=== PATIENT | female | born 1985 | race Caucasian/White ===

== ENCOUNTER → 2022-02-23 13:47 | Outpatient (CLI) | payer MEDICAID, SELFPAY | PROVIDERS: Visit Provider Obstetrics & Gynecology | DX: Z32.00 Encounter for pregnancy test, result unknown (principal) | CPT/HCPCS: 36415; 84702 ==

== ENCOUNTER → 2022-03-21 15:49 | Outpatient (CLI) | payer MEDICAID, SELFPAY ==
[2022-03-21 16:48] LABS: Basophils # 0.3 K/mm3 (0-0.2); Basophils % 2.2 % (0.1-2.0); Eosinophils # 0.2 K/mm3 (0.0-0.4); Eosinophils % 1.6 % (0.1-12.0); Hemoglobin 13.7 g/dL (12.2-16.2); Lymphocytes # 2.8 K/mm3 (0.7-4.5); Lymphocytes % 24.3 % (10-50); Mean Corpuscular HGB Conc 33.5 g/dL (31.8-35.4); Mean Corpuscular Hemoglobin 32.2 pg (27.0-31.2); Mean Corpuscular Volume 96.1 fl (81-99); Mean Platelet Volume 7.9 fl (7.4-10.4); Monocytes # 0.4 K/mm3 (0.1-1.0); Monocytes % 3.8 % (1.7-9.3); Neutrophils # 7.8 K/mm3 (1.8-7.8); Neutrophils % 68.1 % (37.0-80.0); Platelet Count 335 K/mm3 (142-424); Red Blood Count 4.27 M/mm3 (4.20-5.40); White Blood Count 11.5 K/mm3 (4.8-10.8)
[2022-03-23 09:34] LABS: HIV Screen 4th Generation wRfx Non Reactive (Non Reactive); Hepatitis B Surface Antigen Negative (Negative); Hepatitis C Antibody <0.1 s/co ratio (0.0-0.9); Rubella Antibodies, IgG 4.88 index (Immune >0.99)
[2022-03-23 12:02] LABS: Rapid Plasma Reagin Ab Titer Non Reactive (NonRea<1:1)
== END ==
PROVIDERS: PCP Nurse Practitioner Family; Visit Provider Obstetrics & Gynecology
DX: Z34.90 Encounter for supervision of normal pregnancy, unspecified, unspecified trimester (principal)
CPT/HCPCS: 36415; 85025; 86592; 86703; 86762; 86850; 87340; 87380; G0432

== ENCOUNTER → 2022-05-22 13:10 | Outpatient (CLI) | payer MEDICAID, SELFPAY ==
--- NOTE | 2022-05-22 13:10 | US_ITS ---
FINAL REPORT CLINICAL HISTORY: 20 weeks gestation anatomy scan FINDINGS: There is a single live intrauterine gestation. Presentation is cephalic. Placenta is posterior, height, grade 1. Cardiac activity is confirmed at 146 bpm. movement is seen. Three-vessel cord with satisfactory umbilical cord insertion. Four-chamber heart is noted. AMNIOTIC FLUID: Appropriate amount. MEASUREMENTS: ULTRASOUND AGE: 19 weeks 4 days. GESTATION AGE: 20 weeks 0 days. ESTIMATED WEIGHT: 288 g GROWTH PERCENTILE: 33% BPD: 4.7 cm corresponding with 20 weeks 2 days. OFD: 5.6 cm corresponding with 19 weeks 5 days. HC: 16.3 cm corresponding with 19 weeks 1 days. AC: 14.1 cm corresponding with 19 weeks 4 days. FL: 3.0 cm corresponding with 19 weeks 2 days. CEREBELLUM: 2.1 cm corresponding with 21 weeks 2 days. HUMERUS: 2.9 cm corresponding with 19 weeks 4 days. HC/AC: 1.15 CI: 83% FL/BPD: 64% FL/AC: 21% IMPRESSION: Single living IUP with an ultrasound age of 19 weeks 4 days. No gross anomaly is identified. Reviewed, Interpreted and Dictated by Felix Potter MD Transcribed by Hien Emerson Authenticated and [facility]
== END ==
PROVIDERS: PCP Nurse Practitioner Family; Visit Provider Obstetrics & Gynecology
DX: Z34.90 Encounter for supervision of normal pregnancy, unspecified, unspecified trimester (principal); Z3A.20 20 weeks gestation of pregnancy
CPT/HCPCS: 76811

== ENCOUNTER → 2022-07-09 10:43 | Outpatient (CLI) | payer MEDICAID, SELFPAY ==
[2022-07-09 11:46] LABS: Basophils # 0.1 K/mm3 (0-0.2); Basophils % 0.6 % (0.1-2.0); Eosinophils # 0.2 K/mm3 (0.0-0.4); Eosinophils % 1.3 % (0.1-12.0); Hematocrit 37.9 % (37.0-47.0); Hemoglobin 12.5 g/dL (12.2-16.2); Lymphocytes # 2.3 K/mm3 (0.7-4.5); Lymphocytes % 19.6 % (10-50); Mean Corpuscular Hemoglobin 31.9 pg (27.0-31.2); Mean Corpuscular Volume 96.6 fl (81-99); Mean Platelet Volume 8.7 fl (7.4-10.4); Monocytes # 0.7 K/mm3 (0.1-1.0); Monocytes % 5.7 % (1.7-9.3); Neutrophils # 8.4 K/mm3 (1.8-7.8); Neutrophils % 72.8 % (37.0-80.0); Platelet Count 296 K/mm3 (142-424); Red Blood Count 3.93 M/mm3 (4.20-5.40); Red Cell Distribution Width 12.7 % (11.5-17.5); White Blood Count 11.6 K/mm3 (4.8-10.8)
[2022-07-09 12:06] LABS: Glucose,Fasting 79 mg/dl (74-100)
[2022-07-09 13:49] LABS: Glucose 1 Hour 126 mg/dL (74-100)
== END ==
PROVIDERS: PCP Emergency Medicine; Visit Provider Obstetrics & Gynecology
DX: Z34.90 Encounter for supervision of normal pregnancy, unspecified, unspecified trimester (principal)
CPT/HCPCS: 36415; 82951; 85025

== ENCOUNTER 2022-09-04 13:06 | Outpatient (CLI) | payer MEDICAID, SELFPAY ==
--- NOTE | 2022-09-04 13:08 | US_ITS ---
FINAL REPORT CLINICAL HISTORY: sga FINDINGS: There is a single live intrauterine gestation. Presentation is cephalic. Placenta is posterior, grade 2. Heart rate is 144 beats per minute. Visualized anatomy appears normal. AMNIOTIC FLUID LUISITO: 7.26 cm, borderline. MEASUREMENTS: BPD: 8.4 cm corresponding with 34 weeks 0 days. OFD: 10.4 cm corresponding with 32 weeks 5 days. HC: 29.8 cm corresponding with 33 weeks 0 days. AC: 29.3 cm corresponding with 33 weeks 2 days. FL: 6.4 cm corresponding with 33 weeks 0 days. IMPRESSION: Single living IUP with an LUISITO of 7.26 cm. Reviewed, Interpreted and Dictated by Ed Israel III, MD Transcribed by Hien Emerson Authenticated and [facility]
[2022-09-04 16:05] VITALS: BP 106/70; PULSE 78; RESP 18; TEMP 36.7; O2SAT 100; BMI 23.2
== END 2022-09-04 17:50 | disposition home or self-care (01) ==
LOC: RAD 13:06 → OBOUT 15:53 → OB 15:53
PROVIDERS: PCP Emergency Medicine; Visit Provider Obstetrics & Gynecology
DX: O36.5990 Maternal care for other known or suspected poor fetal growth, unspecified trimester, not applicable or unspecified (principal)
CPT/HCPCS: 59025; 76816; 96360

== ENCOUNTER 2022-09-05 11:35 | Outpatient (CLI) | payer MEDICAID, SELFPAY ==
[2022-09-05 12:44] VITALS: BMI 23.2
[2022-09-05 12:48] LABS: Microscopic, Urine URINE MICROSCOPIC (MICROSCOPIC)
[2022-09-05 12:51] LABS: Appearance,Urine CLEAR (Clear); Bilirubin,Urine Negative (Negative); Blood, Urine Negative (Negative); Color,Urine YELLOW (Yellow); Glucose,Urine (UA) Negative (Negative); Ketones,Urine Negative (Negative); Leukocyte Esterase,Urine Negative (Negative); Nitrate,Urine Negative (Negative); Protein,Urine Negative (Negative); Specific Gravity, Urine <= 1.005 (1.005-1.030); Urobilinogen,Urine 0.2 EU/dl (0.2)
[2022-09-05 13:02] LABS: Opiate Screen,Urine Negative ng/ml (<300)
[2022-09-05 13:03] LABS: Phencyclidine Screen,Urine Negative ng/ml (<25)
[2022-09-05 13:04] LABS: Amphetamine/Metha Screen,Urine Negative ng/ml (<1000)
[2022-09-05 13:05] LABS: Barbiturates Screen,Urine Negative ng/ml (<200); Benzodiazepines Screen,Urine Negative ng/ml (<200)
[2022-09-05 13:06] LABS: Bacteria,Urine Trace /lpf; Cannabinoid Screen,Urine Negative ng/ml (<50); WBC,Urine Occasional #/hpf (0-3)
[2022-09-05 13:07] LABS: Cocaine Screen,Urine Negative ng/ml (<300); Methadone Screen,Urine Negative ng/ml (<300)
[2022-09-05 13:17] VITALS: BMI 23.2
== END 2022-09-05 15:18 | disposition home or self-care (01) ==
LOC: OBOUT 11:37 → OB 11:38
PROVIDERS: PCP Emergency Medicine; Visit Provider Obstetrics & Gynecology
DX: O26.893 Other specified pregnancy related conditions, third trimester (principal); Z3A.35 35 weeks gestation of pregnancy; R10.9 Unspecified abdominal pain
CPT/HCPCS: 59025; 80305; 81001; 96360; 96372

== ENCOUNTER → 2022-09-13 03:00 | Outpatient (CLI) | payer MEDICAID, SELFPAY | PROVIDERS: PCP Obstetrics & Gynecology; Visit Provider Obstetrics & Gynecology | DX: Z34.90 Encounter for supervision of normal pregnancy, unspecified, unspecified trimester (principal) | CPT/HCPCS: 86403 ==

== ENCOUNTER 2022-09-19 05:09 | Inpatient (IN) | payer MEDICAID, SELFPAY ==
[2022-09-19 05:14] VITALS: BP 110/78; PULSE 68; RESP 18; TEMP 36.7; O2SAT 98; BMI 22.8
[2022-09-19 05:15] VITALS: BMI 23.6
[2022-09-19 06:08] LABS: Microscopic, Urine URINE MICROSCOPIC (MICROSCOPIC)
[2022-09-19 06:08] LABS: Coronavirus 19, PCR Not Detected (NotDetected); Influenza A, PCR Not Detected (NotDetected); Influenza B, PCR Not Detected (NotDetected)
[2022-09-19 06:16] LABS: Appearance,Urine CLEAR (Clear); Bilirubin,Urine Negative (Negative); Blood, Urine Negative (Negative); Color,Urine YELLOW (Yellow); Glucose,Urine (UA) Negative (Negative); Ketones,Urine Negative (Negative); Leukocyte Esterase,Urine 3+ (Negative); Nitrate,Urine Negative (Negative); Protein,Urine Negative (Negative); Urobilinogen,Urine 0.2 EU/dl (0.2)
[2022-09-19 06:27] LABS: Amphetamine/Metha Screen,Urine Negative ng/ml (<1000)
[2022-09-19 06:28] LABS: Barbiturates Screen,Urine Negative ng/ml (<200)
[2022-09-19 06:29] LABS: Benzodiazepines Screen,Urine Negative ng/ml (<200); Cannabinoid Screen,Urine Negative ng/ml (<50)
[2022-09-19 06:30] LABS: Cocaine Screen,Urine Negative ng/ml (<300)
[2022-09-19 06:31] LABS: Methadone Screen,Urine Negative ng/ml (<300); Opiate Screen,Urine Negative ng/ml (<300)
[2022-09-19 06:32] LABS: Phencyclidine Screen,Urine Negative ng/ml (<25)
[2022-09-19 06:34] LABS: Bacteria,Urine 1+ /lpf
[2022-09-19 06:45] LABS: Basophils # 0.1 K/mm3 (0-0.2); Basophils % 0.9 % (0.1-2.0); Eosinophils # 0.2 K/mm3 (0.0-0.4); Eosinophils % 1.7 % (0.1-12.0); Hematocrit 36.8 % (37.0-47.0); Hemoglobin 12.8 g/dL (12.2-16.2); Lymphocytes # 3.1 K/mm3 (0.7-4.5); Lymphocytes % 31.4 % (10-50); Mean Corpuscular HGB Conc 34.7 g/dL (31.8-35.4); Mean Corpuscular Volume 92.2 fl (81-99); Mean Platelet Volume 11.2 fl (7.4-10.4); Monocytes # 0.6 K/mm3 (0.1-1.0); Monocytes % 5.9 % (1.7-9.3); Neutrophils % 60.2 % (37.0-80.0); Platelet Count 237 K/mm3 (142-424); Red Blood Count 3.99 M/mm3 (4.20-5.40); Red Cell Distribution Width 12.8 % (11.5-17.5)
--- NOTE | 2022-09-19 07:00 | PC.NURSE ---
Patient tolerated shift well. Resting in bed. No s/s of distress noted at this time. Post-op incision clean and dry. IV patent with no redness or edema note to site. Call light within reach of patient, instructed to notify staff of any needs. Report given to day shift.
[2022-09-19 07:25] VITALS: BP 107/73; PULSE 63; RESP 17; TEMP 36.6; O2SAT 100
--- NOTE | 2022-09-19 08:13 | EXP.LABOR.NO ---
Labor Note Subjective: Date: 09/19/22 Time: 08:16 regular contraction Objective: NST:: Reactive Contractions:: every 2-3 minutes Cervical Dilation:: 2 Effacement:: 60% Station: -3 Fetus: Monitoring?: Yes monitoring type:: External Assessment: All Active Problems IUGR, (Acute) uterine contractions in third trimester, antepartum (Acute) Maternal care for restricted growth, antepartum (Acute) Sciatica (Acute) Varicose veins during (Acute) LGSIL on Pap smear of cervix (Acute) Advanced maternal age (AMA) in (Acute) Tobacco use (Acute) Plan: Continue to monitor?: Yes
--- NOTE | 2022-09-19 10:16 | P.PN_ITS ---
[facility] Disclaimer: The information contained in this section may have been updated after the patient was seen, as this information can be updated by other users. Medical History IUGR, Sciatica Family History Family/Other Cancer Maternal Aunt Social History Smoking Status: Current every day smoker tobacco type: cigarettes packs per day: 1 alcohol intake: never substance use type: denies use current occupational status: employed Travel in the last 8 weeks: None [facility] Anesthesia Checklist Patient Identification Patient Identification: Arm Band and Verbal (Name & ) Structural Data Admitted From: Inpatient Planned Operative Procedure/s: Labor epidural Consent for Planned Operative Procedure(s) Verified: Yes NPO Status Verified Time NPO: 00:00 Chart Verification Results Verified: CBC and BMP Airway Assessment C-Spine Mobility Assessed: Yes TMJ Mobility Assessed: Yes Dentition: Good Dentition Neurological Assessment Level of Consciousness: Awake Hx Seizures: No Numbness or tingling in extremities: No Anesthesia Plan Anesthesia Risk discussed: Yes Anesthesia Plan: Verified ASA Class: II Anesthesia Type: Epidural
--- NOTE | 2022-09-19 11:06 | EXP.LABOR.NO ---
Labor Note Subjective: Date: 09/19/22 Time: 11:06 regular contraction Objective: NST:: Reactive Contractions:: every 2-3 minutes Cervical Dilation:: 4 Effacement:: 60% Station: -2 Membranes: artificially ruptured Comment:: clear fluid noted Fetus: Monitoring?: Yes monitoring type:: Internal Assessment: Labor progressing?: Yes All Active Problems IUGR, (Acute) uterine contractions in third trimester, antepartum (Acute) Maternal care for restricted growth, antepartum (Acute) Sciatica (Acute) Varicose veins during (Acute) LGSIL on Pap smear of cervix (Acute) Advanced maternal age (AMA) in (Acute) Tobacco use (Acute) Plan: Anesthesia for epidural?: Yes Continue to monitor?: Yes
--- NOTE | 2022-09-19 15:15 | EXP.OB.APHP ---
OB - H&P: HPI Antepartum History of Present Illness Chief complaint: Scheduled induction of labor for IUGR History of present illness: Ms Lona Landry is a 36 yo at 37w1d who presented to [facility] Labor and Delivery for scheduled induction of labor secondary to IUGR. Ultrasound with PDC 09/11/22 demonstrated EFW 4%ile with AC and Femur length < 1 %ile. LUISITO 16.6, BPP 8/8. Umbilical artery S/D ratio normal. Baby is active. Denies leakage of fluid and vaginal bleeding. History of Present Criteria for establishing EDC:: LMP confirmed by 1st trimester US care: good care Ultrasounds: normal mid trimester US Obstetrical complications: growth restriction Medical complications: none Labs Blood type: A (+) positive Rubella: immune RPR/VDRL: nonreactive GBS status: negative HBsAG: negative PFSH PFSH Disclaimer: The information contained in this section may have been updated after the patient was seen, as this information can be updated by other users. Medical History (Updated 09/19/22 @ 15:24 by Yazmin Kaplan DO) IUGR, with 37 weeks completed gestation Sciatica Family History Family/Other Cancer Social History Smoking Status: Current every day smoker tobacco type: cigarettes packs per day: 1 alcohol intake: never substance use type: denies use current occupational status: employed Travel in the last 8 weeks: None Review of Systems Review of Systems Review of systems:: pertinent systems reviewed and negative unless documented below Meds Home Medications and Allergies Home Medications Medication Instructions Recorded Confirmed Type cetirizine 10 mg tablet 10 mg PO DAILY PRN Allergic 07/04/22 09/19/22 History Symptoms prenat.vits,fredy,[id number]-[id number] 1 tab PO DAILY 07/04/22 09/19/22 History New Prescriptions to Start Prescriptions: Allergies Allergy/AdvReac Type Severity Reaction Status Date / Time No Known Allergies Allergy Verified 09/13/22 14:23 OB - H&P: Exam Physical Exam Vital signs: Temp Pulse Resp BP Pulse Ox 97.8 F 63 17 107/73 L 100 09/19/22 07:25 09/19/22 07:25 09/19/22 07:25 09/19/22 07:25 09/19/22 07:25 Constitutional no acute distress Routine HEENT Exam Head: Present normocephalic and atraumatic Eye: Absent conjunctivae pink ENT: Present mucous membranes moist and dentition normal Routine Neck Exam Present full ROM Routine Respiratory Exam Present CTA bilaterally and normal respiratory effort Routine Cardiovascular Exam Present RRR Routine Abdominal Exam Present soft (Gravid); Absent tenderness Routine Exam External: Present normal urethra appearance; Absent swelling, lesions, lacerations or vulvar tenderness Routine Extremities Exam Present full ROM; Absent edema or calf tenderness Comments: + varicose veins on bilateral lower extremities, LLE > RLE Routine Neurological Exam Present alert, oriented X3 and moving all extremities Routine Psychiatric Exam Present normal affect and cooperative Detailed Labor and Delivery Exam Dilation (cm): 2 Effacement (%): 60 Cervix position: posterior station: -3 Consistency: medium Membranes: artificially ruptured (at 0729 with am[place]. Scant fluid ) Amniotic fluid: clear Baseline heart rate: 140 monitor accelerations: Present monitor decelerations: None residential variability: Moderate (11-25) Contraction frequency (min): 3 Tachysystole: No OB - Results Labs Labs: Short CBC 09/19/22 Range/Units 05:55 WBC 10.0 (4.8-10.8) K/mm3 Hgb 12.8 (12.2-16.2) g/dL Hct 36.8 L (37.0-47.0) % Plt Count 237 (142-424) K/mm3 Urine 09/19/22 Range/Units 05:30 Urine Color Yellow (Yellow) Urine Appearance Clear (Clear) Urine pH 7.0 (5.0-8.5) Ur Specific [place] 1.010 (1.005-1.03
--- NOTE | 2022-09-19 15:25 | EXP.DN ---
Delivery Note Delivery Date:: 09/19/22 Delivery Time:: 14:59 Anesthesia Type: Epidural Was labor medically induced?: Yes Induction method: per pitocin protocol Gestational age (weeks): 37 delivered prior to 39 weeks?: Yes Justification for early elective delivery:: IUGR Infant Gender: Male at 1 minute: 8 at 5 minutes: 9 Delivery Procedure:: Mom complete with epidural. Pushed for approximately 17 minutes. Head delivered spontaneously over intact perineum in direct OA position. No nuchal cord. Anterior shoulder delivered with gentle downward pressure. Posterior shoulder and remainder of body delivered spontaneously. Baby placed on maternal abdomen, mouth and nares bulb suctioned, warmed/dried and stimulated. Delayed cord clamping was performed for 60 seconds. Cord was clamped and cut by father of baby. Cord blood was obtained. Placenta delivered spontaneously and intact. Periurethral laceration repaired with 3-0 Vicryl. Hemostasis noted. Mom and baby were skin to skin and doing well after delivery. Live male baby (baby's name is Joon) APGARs 8, 9 EBL 200 mL Placental Delivery Description: Spontaneous
[2022-09-19 21:30] VITALS: BP 118/71; PULSE 71; RESP 18; TEMP 36.6; O2SAT 99
[2022-09-20 04:00] VITALS: BP 134/77; PULSE 75; RESP 18; TEMP 36.7; O2SAT 97
[2022-09-20 08:38] VITALS: BP 116/66; PULSE 74; RESP 18; TEMP 36.4; O2SAT 98
[2022-09-20 09:02] LABS: Basophils # 0.1 K/mm3 (0-0.2); Basophils % 0.5 % (0.1-2.0); Eosinophils # 0.2 K/mm3 (0.0-0.4); Eosinophils % 1.4 % (0.1-12.0); Hematocrit 34.3 % (37.0-47.0); Hemoglobin 11.6 g/dL (12.2-16.2); Lymphocytes # 2.8 K/mm3 (0.7-4.5); Lymphocytes % 16.8 % (10-50); Mean Corpuscular HGB Conc 33.9 g/dL (31.8-35.4); Mean Corpuscular Hemoglobin 31.1 pg (27.0-31.2); Mean Corpuscular Volume 91.8 fl (81-99); Mean Platelet Volume 10.4 fl (7.4-10.4); Monocytes # 0.8 K/mm3 (0.1-1.0); Monocytes % 4.4 % (1.7-9.3); Neutrophils % 76.9 % (37.0-80.0); Platelet Count 263 K/mm3 (142-424); Red Blood Count 3.73 M/mm3 (4.20-5.40); White Blood Count 16.9 K/mm3 (4.8-10.8)
[2022-09-20 09:04] LABS: MANUAL DIFFERENTIAL MANUAL DIFFERENTIAL (MANUAL DIFF)
[2022-09-20 09:20] LABS: Lymphocytes % 8 % (10-50); Monocytes % 3 % (2-9); Neutrophils % 89 % (42-76); Platelet Estimate Normal; RBC Morphology Normal; Total Cells Counted 100
--- NOTE | 2022-09-20 13:00 | EXP.DC.SUM ---
General Admission date:: 09/19/22 HPI HPI HPI: IOL 37 weeks for growth restriction Uncomplicated vaginal delivery Hospital Course Hospital Course Hospital Course: course uncomplicated She is discharged home on PPD #1 in stable condition She is ambulating and voiding without difficulty She is tolerating a regular diet Hgb 11.6 on PPD #1 (12.8 at admission) She is asymptomatic with mild anemia UA at admission 3+ LE; urine culture no growth in 24 hours Exam Data for Last 24 hours Vital signs and Labs for Last 24 Hours: Temp Pulse Resp BP Pulse Ox 97.6 F 74 18 116/66 98 09/20/22 08:38 09/20/22 08:38 09/20/22 08:38 09/20/22 08:38 09/20/22 08:38 Laboratory Results - last 24 hr 09/20/22 08:20: WBC 16.9 H D, RBC 3.73 L, Hgb 11.6 L, Hct 34.3 L, MCV 91.8, MCH 31.1, MCHC 33.9, RDW 13.0, Plt Count 263, MPV 10.4, Neut % (Auto) 76.9, Lymph % (Auto) 16.8, Sutter % (Auto) 4.4, Eos % (Auto) 1.4, Baso % (Auto) 0.5, Neut # (Auto) 13.0 H, Lymph # (Auto) 2.8, Sutter # (Auto) 0.8, Eos # (Auto) 0.2, Baso # (Auto) 0.1, Total Counted 100, Neutrophils % (Manual) 89 H, Lymphocytes % (Manual) 8 L, Monocytes % (Manual) 3, Platelet Estimate Normal, RBC Morphology Normal I & O for Last 24 hours: Intake & Output 09/18/22 09/19/22 09/20/22 09/21/22 11:59 11:59 11:59 11:59 Weight 129 lb Microbiology Reports for the Last 24 Hours: Microbiology 09/19/22 05:30 Urine,Clean Catch Urine Culture - Preliminary NO GROWTH AFTER 24 HOURS Constitutional Constitutional: no acute distress *Routine HEENT Exam Head: Present normocephalic Eye: Absent conjunctival icterus or scleral injection ENT: Present mucous membranes moist *Routine Neck Exam Neck: Present supple *Routine Respiratory Exam Respiratory: Present CTA bilaterally *Routine Cardiovascular Exam Cardiovascular: Present RRR *Routine Abdominal Exam Abdominal: Present soft; Absent tenderness or distended *Routine Rectal Exam Patient deferred: visual exam and digital exam *Routine Exam Patient deferred: external exam Comments: Fundus firm below umbilicus *Routine Extremities Exam Extremities: Present edema *Routine Neurological Exam Neurological: Present alert and oriented X3 Routine Psychiatric Exam Psychiatric: Present normal affect; Absent depressed Results Data Completed and Pending Labs on day of discharge: Labs from last 24 hours 09/20/22 08:20 WBC 16.9 H D RBC 3.73 L Hgb 11.6 L Hct 34.3 L MCV 91.8 MCH 31.1 MCHC 33.9 RDW 13.0 Plt Count 263 MPV 10.4 Neut % (Auto) 76.9 Lymph % (Auto) 16.8 Sutter % (Auto) 4.4 Eos % (Auto) 1.4 Baso % (Auto) 0.5 Neut # (Auto) 13.0 H Lymph # (Auto) 2.8 Sutter # (Auto) 0.8 Eos # (Auto) 0.2 Baso # (Auto) 0.1 Total Counted 100 Neutrophils % (Manual) 89 H Lymphocytes % (Manual) 8 L Monocytes % (Manual) 3 Platelet Estimate Normal RBC Morphology Normal Preliminary micro results at discharge 09/19/22 05:30 Urine Culture - Preliminary Urine,Clean Catch NO GROWTH AFTER 24 HOURS DS: Diagnosis Discharge Diagnosis (1) with 37 weeks completed gestation: Status: Acute (2) IUGR, : Status: Acute (3) Maternal care for restricted growth, antepartum: Status: Acute (4) Varicose veins during : Status: Acute (5) Advanced maternal age (AMA) in : Status: Acute (6) Tobacco use: Status: Inactive (7) Normal spontaneous vaginal delivery: Status: Acute Meds Home Medications and Allergies Home Medications Medication Instructions Recorded Confirmed Type cetirizine 10 mg tablet 10 mg PO DAILY PRN Allergic 07/04/22 09/19/22 History Symptoms prenat.vits,fredy,[id number] 1 tab PO DAILY 07/04/22 09/19/22 History ibuprofen 400 mg tablet 800 mg PO Q8HP PRN Mild To 09/20/22 Rx Moderate Pain #30 tabs New Prescriptions to Sta
== END 2022-09-20 16:55 | disposition home or self-care (01) | DRG 807 ==
PROVIDERS: Admitting Provider Obstetrics & Gynecology; PCP Emergency Medicine; Visit Provider Obstetrics & Gynecology
DX: O36.5930 Maternal care for other known or suspected poor fetal growth, third trimester, not applicable or unspecified (principal); Z37.0 Single live birth; Z3A.37 37 weeks gestation of pregnancy; O99.334 Smoking (tobacco) complicating childbirth; F17.210 Nicotine dependence, cigarettes, uncomplicated
CPT/HCPCS: 59409; 59025; 80305; 81001; 85007; 85025; 86850; 87086; C1758; C9803; J0290; U0003; U0005